=== PATIENT | male | born 1975 | race Caucasian/White ===

== ENCOUNTER 2019-06-03 18:45 | Emergency (ER) | payer SELFPAY ==
[~2019-06-03] VITALS: Ht 175.3 cm; Wt 65.0 kg
[2019-06-03] MEDS ORDERED: SODIUM CHLORIDE 0.9% 1,000 ML IV ONE (20:40)
[2019-06-03] MEDS ORDERED: ONDANSETRON HCL 4MG/2ML INJ IV STA (20:40)
[2019-06-03 20:57] LABS: BASOPHILS % 0.9 % (0.0-2.0); EOSINOPHILS % 3.5 % (0.0-5.0); HEMATOCRIT. 44.2 % (42.0-52.0); HEMOGLOBIN. 15.4 g/dL (14.0-18.0); MEAN CORPUSCULAR HEMOGLOBIN 30.3 pg (28.0-32.0); MEAN CORPUSCULAR VOLUME 87.1 fL (80.0-94.0); MEAN PLATELET VOLUME 7.6 fl (7.4-10.4); MONOCYTES % 7.9 % (2.0-8.0); NEUTROPHILS % 51.7 % (40.0-76.0); PLATELET 353 x1000/uL (130-400); RED BLOOD CELL COUNT 5.08 mill/uL (4.7-6.1); RED CELL DISTRIBUTION WIDTH 12.8 % (11.6-14.6)
[2019-06-03 21:03] LABS: CHLORIDE 108 mEq/L (98-107)
[2019-06-03 21:07] LABS: ETHANOL BLOOD < 10 mg/dL
[2019-06-03 21:12] LABS: CREATINE KINASE 201 IU/L (39-308)
[2019-06-03 21:15] LABS: CREATINE KINASE MB FRACTION 4.8 ng/mL (0.5-3.6)
[2019-06-03 23:38] LABS: CLARITY URINE CLOUDY (CLEAR); COLOR URINE YELLOW (YELLOW); KETONES URINE NEGATIVE (NEGATIVE); LEUKOCYTE ESTERASE URINE NEGATIVE (NEGATIVE); NITRITE URINE NEGATIVE (NEGATIVE); OCCULT BLOOD URINE NEGATIVE (NEGATIVE); PROTEIN URINE NEGATIVE (NEGATIVE); SPECIFIC GRAVITY URINE 1.018 (1.005-1.030); UROBILINOGEN URINE 0.2 E.U./dL (0.2-1.0)
[2019-06-04 00:03] LABS: METHADONE URINE SCREEN NEGATIVE (NEGATIVE); OPIATES URINE SCREEN NEGATIVE (NEGATIVE)
[2019-06-04 00:04] LABS: *AMPHETAMINES SCREEN URINE PRESUMTIVE POSITIVE (NEGATIVE); *BARBITURATES SCREEN URINE NEGATIVE (NEGATIVE); *BENZODIAZEPINES SCREEN URINE NEGATIVE (NEGATIVE); *COCAINE SCREEN URINE NEGATIVE (NEGATIVE); CANNABINOID URINE SCREEN NEGATIVE (NEGATIVE); PHENCYCLIDINE URINE SCREEN NEGATIVE (NEGATIVE)
[2019-06-04 05:39] VITALS: BP 118/86
== END 2019-06-04 05:41 | disposition home or self-care (01) ==
LOC: EDBD 18:45 → ER 18:45
DX: G92 Toxic encephalopathy (principal); F15.10 Other stimulant abuse, uncomplicated; Z59.0 Homelessness; Z79.899 Other long term (current) drug therapy
CPT/HCPCS: 36415; 70450; 71045; 80053; 80305; 80320; 81003; 82550; 82553; 82962; 83690; 83880; 84443; 84484; 85025; 93005; 96374; 99284; J2405; J7030; Z7610; G0480